=== PATIENT | female | born 1955 | race Caucasian/White ===

== ENCOUNTER → 2017-07-02 | Outpatient (CLI) | payer OTHER | LOC: FIMAGING 10:12 | PROVIDERS: ATTEND Internal Medicine | DX: K76.89 Other specified diseases of liver (principal) ==

== ENCOUNTER → 2017-07-07 | Outpatient (CLI) | payer OTHER | LOC: FIMAGING 09:43 | PROVIDERS: ATTEND Obstetrics & Gynecology | DX: Z12.31 Encounter for screening mammogram for malignant neoplasm of breast (principal) | CPT/HCPCS: G0202 ==

== ENCOUNTER → 2018-07-08 | Outpatient (CLI) | payer OTHER | LOC: FIMAGING 14:46 | PROVIDERS: ATTEND Obstetrics & Gynecology | DX: Z12.31 Encounter for screening mammogram for malignant neoplasm of breast (principal) ==

== ENCOUNTER 2018-08-21 21:19 | Observation (INO) | payer OTHER ==
--- NOTE | 2018-08-21 21:39 | EDPHY ---
H & P Stated Complaint: high HR Time Seen by Provider: 08/21/18 21:39 HPI/ROS: HPI CHIEF COMPLAINT: Palpitations HISTORY OF PRESENT ILLNESS: Very pleasant 63-year-old female, presents emergency room by private vehicle for palpitations. She states over the last few months she has had intermittent palpitations and not feeling well. She seen her primary care doctor for this however thought maybe it was her thyroid however her thyroid has been evaluated and has been told it is normal. She denies any chest pain or pleuritic pain. But does feel lightheaded, palpitations and flushed. States this happened predominantly tonight while in the movie theater. Continues to feel palpitations. Decided come the emergency room for evaluation. Patient states she is due to follow up with Cardiology for this. Past Medical History: Denies significant medical history except for thyroid disease Past Surgical History: Denies any recent surgery Social History: Denies drugs alcohol tobacco. Family History: Noncontributory. ROS REVIEW OF SYSTEMS: 10 Systems were reviewed and negative with the exception of the elements mentioned in the history of present illness. Exam Constitutional nontoxic triage nursing summary reviewed, vital signs reviewed, awake/alert. Nontoxic, vital signs stable but is noted be slightly tachycardic and hypertensive Eyes normal conjunctivae and sclera, EOMI, PERRLA. HENT normal inspection, atraumatic, moist mucus membranes, no epistaxis, neck supple/ no meningismus, no raccoon eyes. Respiratory clear to auscultation bilaterally, normal breath sounds, no respiratory distress, no wheezing. Cardiovascular tachycardia, regular rhythm, no murmur, no edema, distal pulses normal. Gastrointestinal soft, non-tender, no rebound, no guarding, normal bowel sounds, no distension, no pulsatile mass. Genitourinary no CVA tenderness. Musculoskeletal no midline vertebral tenderness, full range of motion, no calf swelling, no tenderness of extremities, no meningismus, good pulses, neurovascularly intact. Skin pink, warm, & dry, no rash, skin atraumatic. Neurologic awake, alert and oriented x 3, AAOx3, moves all 4 extremities equally, motor intact, sensory intact, CN II-XII intact, normal cerebellar, normal vision, normal speech. Psychiatric normal mood/affect. Heme/Lymph/Immune no lymphadenopathy. Differential diagnosis includes but is not limited to: ACS, atypical chest pain , pneumothorax, pneumonia, pulmonary embolism, aortic dissection, congestive heart failure, tumor, musculoskeletal pain, esophageal pain, GERD, peptic ulcer disease, pancreatitis Medical Decision Making: Plan for this patient IV establishment IV fluid bolus , EKG, blood work, chest x-ray, electrolytes, TSH, Mag, re-evaluate. Re-evaluation: EKG interpretation by me on record in [facility] system. Impression time of EKG 2135, sinus tach 105, right bundle-branch block present. Abnormal ST depression in V4 V5 V6. 2317: Spoke with the hospitalist agrees to admit. Plan for admission for palpitations, irregular heart rate, anxiety, and feeling unwell. Here in emergency room D-dimer negative Troponin negative Chest x-ray unremarkable EKG shows no signs of acute ischemia Right bundle-branch block seen on EKG with some mild ST depression V4 V5 V6. No old EKG to compare to. Patient does not have chest pain. Plan for admission overnight observation. Dr. Patel accepts. Source: Patient - Personal History Current Tetanus/Diphtheria Vaccine: Unsure Current Tetanus Diphtheria and Acellular Pertussis (TDAP): Unsure - Medical/Surgical History Hx Asthma: No Hx Chronic Respiratory Disease: No Hx Diabetes: No Hx Cardiac Disease: Yes Hx Renal Disease: No Hx Cirrhosis: No Hx Alcoholism: No Hx HIV/AIDS: No Hx Splenectomy or Spleen Trauma: No Other PMH: hypothyroid anxiety - Social History Smoking Status: Never smoked Constitutional: Initial Vital Signs Temperature (C) 36.4 C 08/21/18 21:20 Heart Rate 104 H 08/21/18 21:20 Respiratory Rate 16 08/21/18 21:20 Blood Pressure 178/90 H 08/21/18 21:20 O2 Sat (%) 100 08/21/18 21:20 O2 Delivery Mode Room Air Allergies/Adverse Reactions: phenytoin sodium [From Dilantin] Allergy (Mild, Verified 04/21/12 11:23) Rash phenytoin sodium extended [From Dilantin] Allergy (Mild, Verified 04/21/12 11:23 ) Rash morphine [Morphine] Allergy (Unknown, Verified 04/21/12 11:23) Rash Home Medications: Medication Instructions Recorded AMBIEN 09/10/09 SYNTHROID 09/10/09 HYDROmorphone HCL [Dilaudid 2 mg 2 mg PO Q4-6PRN PRN #10 tab 04/21/12 (RX)] Meclizine HCl [Meclizine HCl 25 mg 25 mg PO Q8 PRN #0 tab 04/21/12 (RX,OTC)] Ondansetron Odt [Zofran Odt] 4 mg PO Q4PRN #8 tab 04/21/12 oxyCODONE/APAP 5/325 [Percocet 1 - 2 tab PO Q4-6PRN PRN #15 tab 04/21/12 5/325] Medical Decision Making - Diagnostics Imaging Results: Imaging Impressions Chest X-Ray 08/21/18 21:51 Impression: 1. No acute pulmonary disease. 2. Consider chest two views when the patient's medical condition permits. - Data Points Laboratory Results: Laboratory Results 08/21/18 22:00 08/21/18 22:00 08/21/18 08/21/18 08/21/18 22:08 22:00 22:00 WBC RBC Hgb Hct MCV MCH MCHC RDW Plt Count MPV Neut % (Auto) Lymph % (Auto) Ashe % (Auto) Eos % (Auto) Baso % (Auto) Nucleat RBC Rel Count Absolute Neuts (auto) Absolute Lymphs (auto) Absolute Monos (auto) Absolute Eos (auto) Absolute Basos (auto) Absolute Nucleated RBC Immature Gran % Immature Gran # PT INR APTT D-Dimer Sodium 139 mEq/L mEq/L (135-145) Potassium 3.9 mEq/L mEq/L (3.3-5.0) Chloride 104 mEq/L mEq/L (97-110) Carbon Dioxide 23 mEq/l mEq/l (22-31) Anion Gap 12 mEq/L mEq/L (8-16) BUN 23 mg/dL mg/dL (7-23) Creatinine 1.0 mg/dL mg/dL (0.6-1.0) Estimated GFR 56 Glucose 114 mg/dL H mg/dL (70-100) Calcium 10.5 mg/dL H mg/dL (8.5-10.4) Magnesium 2.0 mg/dL mg/dL (1.6-2.3) Total Bilirubin 0.4 mg/dL mg/dL (0.1-1.4) Conjugated Bilirubin 0.1 mg/dL mg/dL (0.0-0.5) Unconjugated Bilirubin 0.3 mg/dL mg/dL (0.0-1.1) AST 31 IU/L IU/L (14-46) ALT 45 IU/L IU/L (9-52) Alkaline Phosphatase 107 IU/L IU/L (38-126) POC Troponin I 0.00 ng/mL ng/mL (0.00-0.08) NT-Pro-B Natriuret Pep 34 pg/mL pg/mL (0-125) Total Protein 8.3 g/dL H g/dL (6.3-8.2) Albumin 5.0 g/dL g/dL (3.5-5.0) TSH 6.180 uIU/mL H uIU/mL (0.465-4.680) Free T4 Pending Free T3 Pending 08/21/18 08/21/18 22:00 22:00 WBC 9.62 10^3/uL H 10^3/uL (3.80-9.50) RBC 4.93 10^6/uL 10^6/uL (4.18-5.33) Hgb 15.4 g/dL g/dL (12.6-16.3) Hct 45.8 % % (38.0-47.0) MCV 92.9 fL fL (81.5-99.8) MCH 31.2 pg pg (27.9-34.1) MCHC 33.6 g/dL g/dL (32.4-36.7) RDW 12.5 % % (11.5-15.2) Plt Count 279 10^3/uL 10^3/uL (150-400) MPV 9.5 fL fL (8.7-11.7) Neut % (Auto) 56.4 % % (39.3-74.2) Lymph % (Auto) 35.1 % % (15.0-45.0) Ashe % (Auto) 5.7 % % (4.5-13.0) Eos % (Auto) 1.9 % % (0.6-7.6) Baso % (Auto) 0.6 % % (0.3-1.7) Nucleat RBC Rel Count 0.0 % % (0.0-0.2) Absolute Neuts (auto) 5.42 10^3/uL 10^3/uL (1.70-6.50) Absolute Lymphs (auto) 3.38 10^3/uL H 10^3/uL (1.00-3.00) Absolute Monos (auto) 0.55 10^3/uL 10^3/uL (0.30-0.80) Absolute Eos (auto) 0.18 10^3/uL 10^3/uL (0.03-0.40) Absolute Basos (auto) 0.06 10^3/uL 10^3/uL (0.02-0.10) Absolute Nucleated RBC 0.00 10^3/uL 10^3/uL (0-0.01) Immature Gran % 0.3 % % (0.0-1.1) Immature Gran # 0.03 10^3/uL 10^3/uL (0.00-0.10) PT 12.4 SEC SEC (12.0-15.0) INR 0.90 (0.83-1.16) APTT 25.8 SEC SEC (23.0-38.0) D-Dimer < 0.27 ug/mLFEU ug/mLFEU (0.00-0.50) Sodium Potassium Chloride Carbon Dioxide Anion Gap BUN Creatinine Estimated GFR Glucose Calcium Magnesium Total Bilirubin Conjugated Bilirubin Unconjugated Bilirubin AST ALT Alkaline Phosphatase POC Troponin I NT-Pro-B Natriuret Pep Total Protein Albumin TSH Free T4 Free T3 Medications Given: Discontinued Medications Sodium Chloride (Ns) 1,000 mls @ 0 mls/hr IV EDNOW ONE; Wide Open PRN Reason: Protocol Stop: 08/21/18 21:52 Last Admin: 08/21/18 22:06 Dose: 1,000 mls Point of Care Test Results: Chemistry 08/21/18 22:08 POC Troponin I 0.00 ng/mL ng/mL (0.00-0.08) Departure - Departure Disposition: [facility] Acute Clinical Impression: Palpitations Condition: Fair
[2018-08-21] MEDS ORDERED: NS 1,000 ML IV ONE (21:51)
[2018-08-21 22:14] LABS: PLATELET COUNT 279 10^3/uL (150-400)
[2018-08-21 22:28] LABS: PROTIME(PATIENT) 12.4 SEC (12.0-15.0)
[2018-08-21] MEDS ORDERED: LORazepam 2 MG/ML INJ IVP ONE (23:11)
[2018-08-21] MEDS ORDERED: NS 1,000 ML IV SCH (23:45)
[2018-08-21] MEDS ORDERED: ONDANSETRON DISINTEGRATING 4 MG TAB PO PRN (23:47)
[2018-08-21] MEDS ORDERED: LORazepam 0.5 MG TAB PO PRN (23:47)
[2018-08-21] MEDS ORDERED: ONDANSETRON 4 MG/2 ML VIAL IVP PRN (23:47)
[2018-08-21] MEDS ORDERED: ACETAMINOPHEN 325 MG TAB PO PRN (23:47)
[2018-08-21] MEDS ORDERED: diphenhydrAMINE 25 MG CAP PO PRN (23:47)
[2018-08-22] MEDS ORDERED: LORazepam 0.5 MG TAB PO ONE (03:36)
[2018-08-22] MEDS ORDERED: LEVOTHYROXINE 50 MCG TAB PO SCH ×2 (03:45→04:30)
--- NOTE | 2018-08-22 05:53 | GHP ---
DATE OF ADMISSION: 08/21/2018 SOURCE: Patient provides history, appears reliable. EMR was reviewed and case discussed with ED pro vider. CHIEF COMPLAINT: Palpitations, presyncope, and tachycardia. HISTORY OF PRESENT ILLNESS: This is a pleasant 63-year-old female with past medical history signific ant for hypothyroidism, migraine headaches, anxiety, insomnia, and history of ongoing episodes of int ermittent palpitations, anxiety, and presyncope. The patient reports that she has had intermittent s ymptoms over the last several years, but in this past year she has been working on further evaluation given the severity of her palpitations and presyncopal episodes. Patient states that she becomes in creasingly distressed during these episodes. Yesterday, patient was sitting at a movie theater with some friends when she had onset of symptoms. They stopped at a store, and patient checked in the [facility] her heart rate which she reports was in the 170s and irregular. Patient came to the emergency department for further evaluation. When she arrived, patient's heart rate was in the low 110s to 100 s. Patient denies any chest pain, pressure, or associated shortness of breath except when the pulsat ions radiate into her neck. Patient reports that she is quite active. She had plans to follow up [facility] Dr. Remedios Martinez at the end of this month for further evaluation of her palpitations. Patient has b een gone for several months for a trip to [place] where she reports she was ambulating several mile s per day without any issues except for 2 episodes of palpitations where she had to sit down and rest . Patient reports that she occasionally gets headaches after these episodes. She also occasionally feels hot and chilled. She also reports a history of elevated blood pressures up to 140s, but never significantly elevated blood pressures as high as 200s, she denies. She has not had any orthopnea, l ower extremity edema, or PND. Patient does consume some decaffeinated teas occasionally during the d ay, but she does use a daily enema, a coffee enema, at the recommendation of her websphere commerce developer. REVIEW OF SYSTEMS: Ten systems reviewed and negative except as noted above. ALLERGIES: Phenytoin and morphine. HOME MEDICATIONS: Patient takes brand name Synthroid 50 mcg p.o. daily, Zofran ODT 4 mg p.o. q.4 ortiz rs p.r.n., meclizine 25 mg p.o. q.8 hours p.r.n., Dilaudid 2 mg p.o. q.4-6 hours p.r.n., lorazepam 0. 5 mg p.o. h.s. p.r.n. Pharmacy still to complete med rec review. PAST MEDICAL HISTORY: Significant for migraine headaches which patient was diagnosed initially with a single seizure episode in her 20s, but has been labeled as a complex migraine, hypothyroidism, anxi ety, insomnia. PAST SURGICAL HISTORY: Significant for left leg ORIF with plates and pins, partial colon resection, hernia repair, and breast reduction. FAMILY HISTORY: Mother with history of atrial fibrillation, . Patient concerned that she ma y have had an abdominal aortic aneurysm rupture. Maternal grandmother also with history of atrial fi brillation. SOCIAL HISTORY: Patient denies any tobacco use. She does report having used occasional sativa or ca nnabis. She also has a rare alcohol intake. CODE STATUS: Full. PHYSICAL EXAMINATION: VITAL SIGNS: Upon arrival to the emergency department, blood pressure 178/90, heart rate is 104, respiratory rate 16, O2 sat 100% on room air with temperature 36.4. Current rosie ls: Blood pressure 120/67, heart rate 76, respiratory rate 16, O2 saturation 96% on room air with te mperature of 36.8. GENERAL: No acute distress. Pleasant adult female is lying quietly in bed. HEA D: Normocephalic, atraumatic. EYES: Extraocular muscles are grossly intact. Pupils equal, round, symmetric. No scleral icterus or conjunctival injection. ENT: Mucous membranes appear moist. No o ropharyngeal erythema or nasal discharge. Dentition intact. NECK: Supple, trachea midline. CV: R egular rate and rhythm. No murmurs, rubs, or gallops appreciated. Carotids without any murmurs or b ruits. RESPIRATORY: Lungs are clear to auscultation bilaterally. No wheezes, rales, or rhonchi. A BDOMEN: Positive bowel sounds. Soft, nontender to palpation. No rebound, guarding, or masses appre ciated. Palpable aorta but no pulsatile mass is appreciated. : No suprapubic tenderness to palpa tion. No Baer catheter in place. EXTREMITIES: No cyanosis, clubbing, edema. Patient with 2+ peda l pulses. MUSCULOSKELETAL: Strength grossly intact. Patient able to sit up independently. Moves a ll extremities. Strength 5/5 upper and lower extremities. NEURO: Cranial nerves 2-12 are intact, s ymmetric bilaterally. Patient is awake, alert, and oriented x4. PSYCH: Thought process content and questions are appropriate. Patient does appear a little bit anxious, but she is pleasant and hoda ative. LABORATORY STUDIES: WBC is 9.62, H and H are 15.4, 45.8. MCV of 92.9, platelet count is 279. No ba nds. PT is 12.4, INR is 0.9, PTT is 25.8. D-dimer is less than 0.27. Sodium is 139, potassium is 3 .9, chloride 104, CO2 is 23, anion gap 12, BUN 23, creatinine is 1.0. GFR is 56, glucose 114, calciu m is 10.5, magnesium 2.0, total bilirubin 0.4, conjugated bilirubin 0.1, ALT is 45, AST is 31, alk ph os 107. Initial troponin is negative. BTNP is 34. Total protein 8.3, albumin is 5.0. TSH is 6.180 with followup free T4 1.18 and free T3 is 3.53. EKG reviewed myself showing sinus tachycardia in the 100s. PVCs are present. Right bundle branch bl ock, which patient reports was previously present. QTc is 453. No available comparison EKGs for rev iew. Chest x-ray image report reviewed myself is negative for any acute findings. ASSESSMENT AND PLAN: A pleasant 63-year-old female who presents with complaints of palpitations and presyncope. 1. Palpitations. Patient showing sinus tachycardia with occasional premature ventricular contractio ns. She has not had any evidence of arrhythmias on monitoring at this point, but we will monitor leticia sely overnight. Blood pressures have been acceptable with exception of the initial blood pressure wh ich has come down nicely. Differential diagnosis including tachyarrhythmia, anxiety or panic disorde r, hypothyroid disease, caffeine intake, pheochromocytoma less likely. No evidence for pulmonary emb olism. D-dimer is negative. No evidence of pneumonia. Patient will be monitored overnight. Her he art rate has come down into the 70s since arrival. She received some intravenous fluid in the emerge ncy department, which we will reassess in the morning to see if she still needs to continue this. El ectrolytes appear adequately replaced at this time. Echocardiogram in the morning and will plan to r epeat troponins. Also, consider continue with monitoring with a Holter if possible before discharge. Otherwise, patient does have followup with Dr. Martinez in a few weeks. Patient's abdominal ultrasound from 2017 was reviewed. There is no evidence of any aortic dilation or evidence of aneurysm on prev ious imaging studies as patient was concerned given potential family history as well as complaining o f feeling pulsations in her abdomen. 2. Elevated blood pressures without history of hypertension. Blood pressures have come down nicely after initial arrival. We will continue to monitor. No need for any p.r.n. 3. Patient's TSH slightly elevated, but T3, T4 are within normal limits. Plan to continue patient's 50 mcg of Synthroid. I have also educated patient to minimize caffeine intake, if possible to elimi page it entirely. Regardless, if this is oral or by enema. 4. Leukocytosis, minimally elevated white count greater than 9000. Likely reactive in setting of yu de jesus's tachycardia. She received IV fluids. We will plan to repeat in the morning. 5. Hypothyroidism. Resume supplementation as noted above. 6. Anxiety, insomnia. Continue patient's Ativan p.r.n. 7. Fluid, electrolyte, nutrition. Intravenous fluids as noted above. Encourage oral intake and sup plementation. Currently patient is n.p.o. except for sips in medications. 8. Cor status is full. 9. Disposition: Patient admitted to observation status on PCU floor for close cardiac monitoring pe nding further evaluation studies as noted above. /[id number]/MODL
[2018-08-22 10:47] LABS: PLATELET COUNT 232 10^3/uL (150-400)
[2018-08-22] MEDS ORDERED: REGADENOSON 0.4 MG/5 ML SYR IVP ONE (11:57)
--- NOTE | 2018-08-22 12:15 | ECHO ---
[email or web address] [address] Main: [phone] Fax: Transthoracic Echocardiogram Name: ABDI PRINGLE MR#: [id number] Study Date: 08/22/2018 Study Time: 10:02 AM Date of : 1955 Age: 63 year(s) Height: 160 cm (63 in.) Weight: 63.5 kg (140 lb.) BSA: 1.66 m2 Gender: Female Examination: Echo Indication: Palpitations Image Quality: Adequate Contrast: Requested by: Twyla Patel BP: 114 mmHg/61 mmHg Heart Rate: Rhythm: Indication: Palpitations Procedure Staff Auto Design Checker: Sandra Mercado RDCS Reading Physician: Dann Armando MD Requesting Provider: Conclusions: Normal size left ventricle. Normal global systolic LV function. EF is 57 %. No regional wall motion abnormality. Normal diastolic LV function. Mild mitral valve regurgitation is present. Trivial tricuspid valve regurgitation. Pulmonary artery pressure is not obtained due to inadequate TR jet. Measurements: Chambers Valvular Assessment AV/MV Valvular Assessment TV/PV Normal Normal Normal Name Value Range Name Value Range Name Value Range Ao Merced (2D): 2.7 cm (1.4 cm-2.6 AV Vmax: 1.04 m/s (1 m/s-1.7 PV Vmax: 0.88 m/s (0.6 m/s-0.9 cm) m/s) m/s) IVSd (2D): 0.8 cm (0.6 cm-1.1 AV maxP mmHg ( - ) PV PGmax: 3 mmHg ( - ) cm) AV meanP mmHg ( - ) LVDd (2D): 4.0 cm (3.9 cm-5.3 TOÑO (VTI): 2.1 cm ( - ) cm) MV E Vmax: 0.74 m/s ( - ) LVDs (2D): 2.7 cm (2.1 cm-4 MV A Vmax: 0.72 m/s ( - ) cm) MV E/A: 1.03 ( - ) LVPWd (2D): 1.0 cm ( - ) MV PHT: 0.062 s ( - ) LVOTd 1.8 cm 1.8 cm mm MVA (PHT): 3.5 s ( - ) LVEF (BP): 57 % (>=55 %) RVDd(2D): 3.5 cm (1.9 cm-3.8 cmmm) Continued Measurements: Chambers Valvular Assessment AV/MV Patient: ABDI PRINGLE Study Date: 08/22/2018 Page 1 of 2 10:02 AM Name Value Name Value LADs: 3.1 cm MV DecTime: 232 m/s LADs Lon.2 cm MV E' Septal: 0.08 m/s LA Area: 15.1 cm2 MV E/E' Septal: 9.40 LA Volume: 37 ml MV E/E' Lateral: 6.40 LA Volume Index: 22.3 ml/m2 RA Area: 12.7 cm2 Additional Vessels Name Value Ao Ascendin.8 cm Inferior Vena Cava: 1.7 cm Findings: Left Ventricle: Normal size left ventricle. No LV hypertrophy. Normal global systolic LV function. EF is 57 %. No regional wall motion abnormality. Normal diastolic LV function. Right Ventricle: Normal size right ventricle. Normal RV function. Left Atrium: The left atrium is normal in size. Right Atrium: The right atrium is normal in size. Mitral Valve: The mitral valve is normal in appearance and function. Mild mitral valve regurgitation is present. No mitral stenosis is present. Aortic Valve: The aortic valve is tri-leaflet. There is no significant aortic valve regurgitation. No aortic valve stenosis is present. Tricuspid Valve: The tricuspid valve is normal in appearance and function. Trivial tricuspid valve regurgitation. Pulmonary artery pressure is not obtained due to inadequate TR jet. Pulmonic Valve: The pulmonic valve is normal in appearance and function. Mild pulmonic valve regurgitation is noted. Aorta: The aorta is normal. Normal size aortic root measuring 2.7 cm. Normal size ascending aorta measuring 2.8 cm. IVC: The IVC is normal sized. Pericardium: No pericardial effusion. No pleural effusion. (No Signature Object) Patient: ABDI PRINGLE Study Date: 08/22/2018 Page 2 of 2 10:02 AM [id number]
--- NOTE | 2018-08-22 13:23 | ASMTCMCOM ---
CM Note CM Note Notes: CM reviewed chart and met pt during rounds for d/c planning. Pt is a 63 y/o female who presented to the ED for palpitations. Over the last few months she has had intermittent palpitations and has not felt well. Pt has been living independently with her , Anil at [phone]. No CM needs have been identified. CM will follow for changes. D/C Plan: Anticipate independent. Date Signed: 08/22/2018 01:23 PM Electronically Signed By:Mary Lou Florian
--- NOTE | 2018-08-22 14:05 | CPR ---
DATE OF PROCEDURE: 08/22/2018 PROCEDURE: Nuclear treadmill stress test. ORDERING PHYSICIAN: Twyla Patel MD. REASON FOR TEST: 1. Chest fullness. 2. Palpitations. Resting EKG shows a sinus rhythm with right bundle branch block. Prior to start of test, she is asym ptomatic. Resting blood pressure is 120/80, resting heart rate 82. NUCLEAR TREADMILL STRESS TEST: Yaya protocol. She was exercised for a total of 7 minutes and 30 seconds. She reached a MET level of 8.6. Peak hea rt rate was 164, which was maximal heart rate for her age. Peak blood pressure was 174/60. There we re no EKG changes or arrhythmias noted with exertion. She remained asymptomatic. RECOVERY: She spontaneously recovered. Her EKG remained stable with no arrhythmias noted. Resting blood pressure 124/60, resting heart rate 100. At this time, she currently is stable for nuclear imaging. /[id number]/MODL
[2018-08-22 15:57] VITALS: BP 116/69
--- NOTE | 2018-08-22 22:23 | PDDCSUM ---
Discharge Summary Discharge Summary: Date of admission: 08/21/18 Date of discharge: 08/22/18 Discharge Diagnoses: 1. Acute palpitations 2. Acute anxiety 3. Acutely elevated blood pressure Procedures: Normal nuc stress test; normal Echo; normal abdominal US (no AAA) Chief complaint: Palpitations, anxiety Subjective: No recurrence of symptoms, feeling well Physical Exam: SBP 110-140, HR 70-90, sating well on room air, heart rhythm normal w/o MRG, lungs CTA bilat, anxious, no LE edema, no abdominal bruit Labs: Cr 1.0, WBC 9,600, Hgb 15.4, K 3.9, dimer neg, TSH 6.2 Hospital Course: The patient presented w/ symptomatic palpitations, reported tachycardia which is very symptomatic, causing anxiety and general feeling of being unwell. The symptoms did not gen, and she presented to [facility] w/ an SBP of 200s and sinus tach on EKG. She was ruled out for ACS w/ normal trop and no ischemic changes on EKG. She was ruled out for obstructive CAD w/ a normal nuc stress; ruled out PE w/ normal dimer; ruled out AAA w/ normal abd US. I suspect that her symptoms are either purely anxiety related or an undiagnosed tachyarrhythmia which provokes anxiety and subsequently elevated BPs. I educated her regarding carotid massage and valsalva (in case this is an SVT) as well as provided her w/ an Rx for ativan to symptomatically treat. She has a follow-up appointment scheduled with Dr. Martinez, and I would recommend arranging outpatient 30-day monitor or event monitor + 24-hr ambulatory BP monitoring if rhythm monitoring does not yield a diagnosis. It is possible that episodic HTN is driving her symptomatology, albeit this is less likely, and arrhythmia should be evaluated first. If all diagnostic studies negative, recommend further investigation into anxiety. Discharge medications: please see official DC med rec in chart; of note, ativan 0.5mg PRN #20 prescribed Discharge instructions: please follow-up with Dr. Martinez as scheduled.
== END 2018-08-22 17:46 | disposition home or self-care (01) ==
LOC: EEVIPCON 23:10 → F2W 08-22 00:27
PROVIDERS: ADMIT Family Medicine; ATTEND Internal Medicine
DX: R00.2 Palpitations (principal); R03.0 Elevated blood-pressure reading, without diagnosis of hypertension; R55 Syncope and collapse; E03.9 Hypothyroidism, unspecified; F41.9 Anxiety disorder, unspecified
CPT/HCPCS: 71045; 76775; 78451; 93017; 93306; 96361; 96374; 99285; A9500; G0378; 84481-90; 84484-PO; J2060; J2785

== ENCOUNTER 2018-10-15 23:15 | Observation (INO) | payer OTHER ==
--- NOTE | 2018-10-15 23:27 | EDPHY ---
H & P Stated Complaint: Thinks in aflutter, heart racing Time Seen by Provider: 10/15/18 23:26 HPI/ROS: HPI CHIEF COMPLAINT: Palpitation HISTORY OF PRESENT ILLNESS: 69-year-old female, history of thyroid disease, hypertension, however no coronary artery disease, presents emergency room with palpitations. IV previously saw this patient back in August she was admitted the hospital for anxiety, hypertension palpitations. She did since follow-up with Cardiology. Placed on metoprolol. She did have a nuclear stress test that was negative. She denies any chest pain or chest pressure or shortness of breath however tonight she states that she went for vigorous workout. Then ate heavy meal afterwards. Then was getting ready to go to bed and felt her heart racing. She arrives to the emergency room stating that she feels her heart racing. Denies chest pain or shortness of breath. States the racing heart is regular. Past Medical History: Anxiety, hypertension, palpitation, thyroid disease Past Surgical History: no recent surgery Social History: Denies drugs alcohol tobacco. Family History: Noncontributory ROS REVIEW OF SYSTEMS: 10 Systems were reviewed and negative with the exception of the elements mentioned in the history of present illness. Exam Constitutional triage nursing summary reviewed, vital signs reviewed, awake/ alert. Noted be hypertensive at triage. Eyes normal conjunctivae and sclera, EOMI, PERRLA. HENT normal inspection, atraumatic, moist mucus membranes, no epistaxis, neck supple/ no meningismus, no raccoon eyes. Respiratory clear to auscultation bilaterally, normal breath sounds, no respiratory distress, no wheezing. Cardiovascular rate normal, regular rhythm, no murmur, no edema, distal pulses normal. Gastrointestinal soft, non-tender, no rebound, no guarding, normal bowel sounds, no distension, no pulsatile mass. Genitourinary no CVA tenderness. Musculoskeletal no midline vertebral tenderness, full range of motion, no calf swelling, no tenderness of extremities, no meningismus, good pulses, neurovascularly intact. Skin pink, warm, & dry, no rash, skin atraumatic. Neurologic awake, alert and oriented x 3, AAOx3, moves all 4 extremities equally, motor intact, sensory intact, CN II-XII intact, normal cerebellar, normal vision, normal speech. Psychiatric normal mood/affect. Heme/Lymph/Immune no lymphadenopathy. Differential Diagnosis: Includes but is not limited to in a particular order acute anxiety, cardiac arrhythmia, AFib, a flutter, SVT, other cardiac arrhythmia WPW, PE, dehydration, electrolyte disturbance Medical Decision Making: Plan for this patient IV establishment IV fluid bolus , EKG, chest x-ray, troponin, IV Ativan for anxiety rule out cardiac arrhythmia rule out ACS Re-evaluation: EKG interpretation by me on record in [employer] system. Impression time of EKG 2326, sinus rhythm rate of 83 with a right bundle-branch block present. When I compare this to her old EKG dated 08/21/2018 the morphology of the right bundle-branch block is unchanged. There is no acute ischemia on this EKG. EKG interpretation by me on record in [employer] system. Impression time of EKG 0005 this is a repeat EKG sinus rhythm rate of 80, right bundle-branch block present. Some irregularity to it. No acute ischemia. Patient's chest x-ray unremarkable. 0112: Patient has runs of tachycardia here in emergency room. Capture on telemetry monitoring. To be in the 150s appears to be possibly on lying a flutter. Patient did ambulate to bathroom got tachycardic, lightheaded and dizzy. Plan for hospital admission overnight. Cardiac monitoring. 1:17 a.m.. Patient at times goes into the 150s. When reviewing with the appears to be possibly underlying a flutter. Patient ambulated throughout the emergency room still feels lightheaded. Would prefer to be admitted overnight. Plan for observation overnight IV fluids. Patient consult to Dr. Angulo, Agrees to admit. 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, - Social History Smoking Status: Never smoked Constitutional: Initial Vital Signs Temperature (C) 36.5 C 11/29/18 23:19 Heart Rate 100 10/15/18 23:19 Respiratory Rate 19 10/15/18 23:19 Blood Pressure 181/100 H 10/15/18 23:19 O2 Sat (%) 99 10/15/18 23:19 O2 Delivery Mode Room Air Allergies/Adverse Reactions: phenytoin sodium [From Dilantin] Allergy (Mild, Verified 10/15/18 23:18) Rash phenytoin sodium extended [From Dilantin] Allergy (Mild, Verified 10/15/18 23:18 ) Rash morphine [Morphine] Allergy (Unknown, Verified 10/15/18 23:18) Rash Home Medications: Medication Instructions Recorded Levothyroxine [Synthroid 50 mcg 50 mcg PO DAILY06 09/10/09 (*)] LORazepam [Ativan (*)] 0.25 mg PO Q4 PRN #20 tab 08/22/18 Rizatriptan Benzoate [Rizatriptan] 5 mg PO DAILY PRN 08/22/18 Metoprolol ER-Hctz 100-12.5 mg 10/15/18 Medical Decision Making - Diagnostics Imaging Results: Imaging Impressions Chest X-Ray 10/15/18 23:31 Impression: No acute findings in the chest. - Data Points Laboratory Results: Laboratory Results 10/15/18 23:27 10/15/18 23:27 10/15/18 10/15/18 10/15/18 23:35 23:27 23:27 WBC RBC Hgb Hct MCV MCH MCHC RDW Plt Count MPV Neut % (Auto) Lymph % (Auto) Whitman % (Auto) Eos % (Auto) Baso % (Auto) Nucleat RBC Rel Count Absolute Neuts (auto) Absolute Lymphs (auto) Absolute Monos (auto) Absolute Eos (auto) Absolute Basos (auto) Absolute Nucleated RBC Immature Gran % Immature Gran # RBC/WBC/PLT Morphology Platelet Estimate PT 13.1 SEC SEC (12.0-15.0) INR 0.97 (0.83-1.16) APTT 25.0 SEC SEC (23.0-38.0) Sodium 142 mEq/L mEq/L (135-145) Potassium 3.5 mEq/L mEq/L (3.3-5.0) Chloride 105 mEq/L mEq/L (97-110) Carbon Dioxide 24 mEq/l mEq/l (22-31) Anion Gap 13 mEq/L mEq/L (6-14) BUN 20 mg/dL mg/dL (7-23) Creatinine 0.9 mg/dL mg/dL (0.6-1.0) Estimated GFR > 60 Glucose 105 mg/dL H mg/dL (70-100) Calcium 10.3 mg/dL mg/dL (8.5-10.4) Magnesium 2.0 mg/dL mg/dL (1.6-2.3) Total Bilirubin 0.5 mg/dL mg/dL (0.1-1.4) Conjugated Bilirubin 0.2 mg/dL mg/dL (0.0-0.5) Unconjugated Bilirubin 0.3 mg/dL mg/dL (0.0-1.1) AST 38 IU/L IU/L (14-46) ALT 46 IU/L IU/L (9-52) Alkaline Phosphatase 80 IU/L IU/L (38-126) POC Troponin I 0.00 ng/mL ng/mL (0.00-0.08) NT-Pro-B Natriuret Pep 75 pg/mL pg/mL (0-125) Total Protein 8.1 g/dL g/dL (6.3-8.2) Albumin 5.1 g/dL H g/dL (3.5-5.0) 10/15/18 23:27 WBC 10.62 10^3/uL H 10^3/uL (3.80-9.50) RBC 4.81 10^6/uL 10^6/uL (4.18-5.33) Hgb 15.1 g/dL g/dL (12.6-16.3) Hct 45.2 % % (38.0-47.0) MCV 94.0 fL fL (81.5-99.8) MCH 31.4 pg pg (27.9-34.1) MCHC 33.4 g/dL g/dL (32.4-36.7) RDW 12.4 % % (11.5-15.2) Plt Count 284 10^3/uL 10^3/uL (150-400) MPV 9.3 fL fL (8.7-11.7) Neut % (Auto) 38.2 % L % (39.3-74.2) Lymph % (Auto) 51.6 % H % (15.0-45.0) Whitman % (Auto) 7.2 % % (4.5-13.0) Eos % (Auto) 2.1 % % (0.6-7.6) Baso % (Auto) 0.7 % % (0.3-1.7) Nucleat RBC Rel Count 0.0 % % (0.0-0.2) Absolute Neuts (auto) 4.06 10^3/uL 10^3/uL (1.70-6.50) Absolute Lymphs (auto) 5.48 10^3/uL H 10^3/uL (1.00-3.00) Absolute Monos (auto) 0.76 10^3/uL 10^3/uL (0.30-0.80) Absolute Eos (auto) 0.22 10^3/uL 10^3/uL (0.03-0.40) Absolute Basos (auto) 0.07 10^3/uL 10^3/uL (0.02-0.10) Absolute Nucleated RBC 0.00 10^3/uL 10^3/uL (0-0.01) Immature Gran % 0.2 % % (0.0-1.1) Immature Gran # 0.02 10^3/uL 10^3/uL (0.00-0.10) RBC/WBC/PLT Morphology TNP Platelet Estimate TNP PT INR APTT Sodium Potassium Chloride Carbon Dioxide Anion Gap BUN Creatinine Estimated GFR Glucose Calcium Magnesium Total Bilirubin Conjugated Bilirubin Unconjugated Bilirubin AST ALT Alkaline Phosphatase POC Troponin I NT-Pro-B Natriuret Pep Total Protein Albumin Medications Given: Discontinued Medications Sodium Chloride (Ns) 1,000 mls @ 0 mls/hr IV EDNOW ONE; Wide Open PRN Reason: Protocol Stop: 10/15/18 23:32 Last Admin: 10/15/18 23:45 Dose: 1,000 mls Lorazepam (Ativan Injection) 0.5 mg IVP EDNOW ONE Stop: 10/15/18 23:34 Last Admin: 10/15/18 23:48 Dose: 0.5 mg Point of Care Test Results: Chemistry 10/15/18 23:35 POC Troponin I 0.00 ng/mL ng/mL (0.00-0.08) Departure - Departure Disposition: [facility] Inpatient Acute Clinical Impression: Palpitations, Tachycardia Condition: Fair Referrals: Serene Sandoval MD [Primary Care Provider] - As per Instructions
[2018-10-15] MEDS ORDERED: NS 1,000 ML IV ONE (23:31)
[2018-10-15] MEDS ORDERED: LORazepam 2 MG/ML INJ IVP ONE (23:33)
[2018-10-15 23:40] LABS: PLATELET COUNT 284 10^3/uL (150-400)
[2018-10-15 23:47] LABS: INR 0.97 (0.83-1.16); PROTIME(PATIENT) 13.1 SEC (12.0-15.0)
[2018-10-16] MEDS ORDERED: ONDANSETRON DISINTEGRATING 4 MG TAB PO PRN (01:20)
[2018-10-16] MEDS ORDERED: ACETAMINOPHEN 325 MG TAB PO PRN (01:20)
[2018-10-16] MEDS ORDERED: ONDANSETRON 4 MG/2 ML VIAL IVP PRN (01:20)
--- NOTE | 2018-10-16 01:40 | PDGENHP ---
History and Physical - Chief Complaint Palpitations - History of Present Illness 63 yo F w/ hx of SVT and hypothyroid presents with palpitations. She was admitted for similar symptoms in August. Ischemic evaluation at that time was negative. She had an event monitor placed, which reveal narrow complex tachycardia with rates of up to 240. Per Dr. Dill, the rhythm seemed consistent with atrial tachycardia and occasional atrial flutter. Her symptoms improved significantly with avoidance of ETOH/MJ and starting metoprolol. She is currently taking 37.5 mg BID, which she is compliant with. Today she was in her usual state of health. She went to a work-out class and then out to dinner. She denies ETOH. This evening she noted heart racing so she came to the ED. She is continuing to feel this intermittently. Her ECG is unchanged from prior. Case discussed with ED physician Dr. Nicolas; records reviewed and summarized above. History Information - Allergies/Home Medication List Allergies/Adverse Reactions: phenytoin sodium [From Dilantin] Allergy (Mild, Verified 10/15/18 23:18) Rash phenytoin sodium extended [From Dilantin] Allergy (Mild, Verified 10/15/18 23:18 ) Rash morphine [Morphine] Allergy (Unknown, Verified 10/15/18 23:18) Rash Home Medications: Levothyroxine [Synthroid 50 mcg (*)] 50 mcg PO DAILY06 09/10/09 [Last Taken Unknown] Rizatriptan Benzoate [Rizatriptan] 5 mg PO DAILY PRN 08/22/18 [Last Taken Unknown] Metoprolol ER-Hctz 100-12.5 mg 10/15/18 [Last Taken Unknown] I have personally reviewed and updated: family history, medical history - Past Medical History SVT Additional medical history: Hypothyroid - Surgical History Reports: colectomy, hernia repair Additional surgical history: LLE ORIF - Family History Additional family history: Atrial fibrillation - Social History Smoking Status: Never smoked Review of Systems Review of Systems: ROS: 10pt was reviewed & negative except for what was stated in HPI & below Physical Exam Physical Exam: Temp Pulse Resp BP Pulse Ox 36.5 C 90 20 117/73 96 10/15/18 23:19 10/16/18 01:02 10/16/18 01:02 10/16/18 01:02 10/16/18 01:02 Constitutional: appears nourished, uncomfortable Eyes: PERRL, EOMI Ears, Nose, Mouth, Throat: moist mucous membranes, no oral mucosal ulcers Cardiovascular: no murmur, rub, or gallop, irregularly irregular Respiratory: no respiratory distress, clear to auscultation Gastrointestinal: normoactive bowel sounds, soft, non-tender abdomen Skin: warm, normal color Musculoskeletal: full muscle strength, no muscle tenderness Neurologic: AAOx3, CN II-XII Intact Psychiatric: interacting appropriately, not anxious Lab Data & Imaging Review 10/15/18 23:10/15/18: WBC 10.62 10^3/uL (3.80-9.50) H 10/15/18: RBC 4.81 10^6/uL (4.18-5.33) 10/15/18 23: Hgb 15.1 g/dL (12.6-16.3) 10/15/18: Hct 45.2 % (38.0-47.0) 10/15/18: MCV 94.0 fL (81.5-99.8) 10/15/18: MCH 31.4 pg (27.9-34.1) 10/15/18: MCHC 33.4 g/dL (32.4-36.7) 10/15/18: RDW 12.4 % (11.5-15.2) 10/15/18 23: Plt Count 284 10^3/uL (150-400) 10/15/18: MPV 9.3 fL (8.7-11.7) 10/15/18: Neut % (Auto) 38.2 % (39.3-74.2) L 10/15/18: Lymph % (Auto) 51.6 % (15.0-45.0) H 10/15/18: [place] % (Auto) 7.2 % (4.5-13.0) 10/15/18: Eos % (Auto) 2.1 % (0.6-7.6) 10/15/18: Baso % (Auto) 0.7 % (0.3-1.7) 10/15/18 23: Nucleat RBC Rel Count 0.0 % (0.0-0.2) 10/15/18: Absolute Neuts (auto) 4.06 10^3/uL (1.70-6.50) 10/15/18 23: Absolute Lymphs (auto) 5.48 10^3/uL (1.00-3.00) H 10/15/18: Absolute Monos (auto) 0.76 10^3/uL (0.30-0.80) 10/15/18 23: Absolute Eos (auto) 0.22 10^3/uL (0.03-0.40) 10/15/18: Absolute Basos (auto) 0.07 10^3/uL (0.02-0.10) 10/15/18: Absolute Nucleated RBC 0.00 10^3/uL (0-0.01) 10/15/18: Immature Gran % 0.2 % (0.0-1.1) 10/15/18: Immature Gran # 0.02 10^3/uL (0.00-0.10) 10/15/18: RBC/WBC/PLT Morphology TNP 10/15/18: Platelet Estimate TNP 10/15/18: PT 13.1 SEC (12.0-15.0) 10/15/18: INR 0.97 (0.83-1.16) 10/15/18: APTT 25.0 SEC (23.0-38.0) 10/15/18 23: Sodium 142 mEq/L (135-145) 10/15/18: Potassium 3.5 mEq/L (3.3-5.0) 10/15/18: Chloride 105 mEq/L (97-110) 10/15/18: Carbon Dioxide 24 mEq/l (22-31) 10/15/18: Anion Gap 13 mEq/L (6-14) 10/15/18: BUN 20 mg/dL (7-23) 10/15/18: Creatinine 0.9 mg/dL (0.6-1.0) 10/15/18 23: Estimated GFR > 60 11/29/18 23:27 Glucose 105 mg/dL (70-100) H 10/15/18 23:27 Calcium 10.3 mg/dL (8.5-10.4) 10/15/18 23: Magnesium 2.0 mg/dL (1.6-2.3) 10/15/18 23:27 Total Bilirubin 0.5 mg/dL (0.1-1.4) 10/15/18 23: Conjugated Bilirubin 0.2 mg/dL (0.0-0.5) 10/15/18 23: Unconjugated Bilirubin 0.3 mg/dL (0.0-1.1) 10/15/18 23: AST 38 IU/L (14-46) 10/15/18 23: ALT 46 IU/L (9-52) 10/15/18 23: Alkaline Phosphatase 80 IU/L (38-126) 10/15/18 23: POC Troponin I 0.00 ng/mL (0.00-0.08) 10/15/18 23:35 NT-Pro-B Natriuret Pep 75 pg/mL (0-125) 10/15/18 23: Total Protein 8.1 g/dL (6.3-8.2) 10/15/18 23:27 Albumin 5.1 g/dL (3.5-5.0) H 10/15/18 23:27 Imaging Review: Imaging Impressions Chest X-Ray 10/15/18 23:31 Impression: No acute findings in the chest. Visualized and Interpreted EKG results: Yes EKG Interpretation: Positive for: other (Sinus rhythm w/ PACs), right bundle branch block Assessment & Plan Assessment: 63 yo F w/ hx of SVT presents with palpitations. Plan: 1. SVT, recurrent - Recently admitted for the same; event monitor revealed atrial tachycardia/flutter with rates up to 240s. Symptoms had significantly improved with avoidance of ETOH and MJ as well as starting metoprolol, now on 37.5 mg BID. Ischemic evaluation negative last month. - Admit to PCU for observation - Monitor on telemetry - Continue home metoprolol pending reconciliation - Cardiology consult placed in [facility] - Will check TSH 2. Hypothyroid - Continue LTX, check TSH Diet - Regular Code - Full Ppx - LMWH Dispo - Admit under observation status
[2018-10-16 04:09] LABS: PLATELET COUNT 266 10^3/uL (150-400)
[2018-10-16] MEDS ORDERED: ENOXAPARIN 40 MG/0.4 ML SYR SC SCH (09:00)
[2018-10-16] MEDS ORDERED: RIZATRIPTAN BENZOATE 5 MG PO PRN (09:34)
[2018-10-16] MEDS ORDERED: CARBOXYMETHYLCELLULOSE 1% 0.4 ML DROPERETTE EACHEYE PRN (09:34)
[2018-10-16] MEDS ORDERED: LEVOTHYROXINE 50 MCG TAB PO SCH (10:00)
[2018-10-16] MEDS ORDERED: METOPROLOL SUCCINATE XR 50 MG TAB PO SCH (10:45)
[2018-10-16] MEDS ORDERED: ASPIRIN 325 MG TAB PO SCH (11:30)
[2018-10-16 11:36] VITALS: BP 123/69
--- NOTE | 2018-10-16 13:54 | PDDCSUM ---
Discharge Summary Discharge Summary: 63 yo F w/ hx of SVT and hypothyroid admitted with palpitations. She was admitted for similar symptoms in August. Ischemic evaluation at that time was negative. She had an event monitor placed, which reveal narrow complex tachycardia with rates of up to 240. Per Dr. Dill, the rhythm seemed consistent with atrial tachycardia and occasional atrial flutter. Her symptoms improved significantly with avoidance of ETOH/MJ and starting metoprolol. She is currently taking 37.5 mg BID, which she is compliant with. She was evaluated by Cardiology and Metoprolol was increased. She has been cleared for d/c. She will f/u with Cardiology in 1-2 weeks. Her TSH was noted to be high. She wants to d/w her Orthodontic Technician regarding ongoing Levothyroxine and has requested no changes DDX 1. SVT, recurrent - Recently admitted for the same; event monitor revealed atrial tachycardia/flutter with rates up to 240s. Symptoms had significantly improved with avoidance of ETOH and MJ as well as starting metoprolol, now on 37.5 mg BID. Ischemic evaluation negative last month. 2. Hypothyroid - Continue LTX, f/u Endocrinology Exam: NAD AAOX3 RRR CTA B S/NT/ND MEDS: SEE MED REC F/U: PER ABOVE TOTAL TIME SPENT ON D/C IS 35 MINS
--- NOTE | 2018-10-16 18:35 | GCON ---
CARDIOLOGY CONSULT DATE OF CONSULTATION: 10/16/2018 PRIMARY CARDIOLOGISTS: Myself and Dr. Osbaldo Dill. CHIEF COMPLAINT: Palpitations. HISTORY OF PRESENT ILLNESS: The patient is a 63-year-old female with hypertension, SVT, hypothyroidi sm, and dyslipidemia. She was first diagnosed with SVT (likely atrial tachycardia versus atrial flut ter) in August of this year when she presented with palpitations. She was admitted at that time. S he had a normal nuclear stress test and overall normal echocardiogram with only mild mitral regurgita tion. In the outpatient setting, we documented fast SVT up to 240 beats per minute. She was started on bet a blockers and made some lifestyle modifications, including alcohol cessation and cessation of caffei ne enemas. However, yesterday, she admits that she was somewhat dehydrated. She went to a very inte nse exercise class and then had a large meal, which is unusual for her. Around 10 p.m., she started to notice her usual palpitations. This is not as intense symptom as before, but she was concerned an d presented to the ER. She was found to have intermittent salvos of SVT, admitted for observation. She is currently in sinus rhythm. Feels well. No anginal chest pain. No presyncope or syncope. ALLERGIES: Phenytoin and morphine. PAST MEDICAL HISTORY: 1. SVT. 2. Hypertension. 3. Hypothyroidism. 4. Anxiety. 5. Dyslipidemia. 6. Right bundle branch block. OUTPATIENT MEDICATIONS: Metoprolol-XL 37.5 mg once daily, Synthroid 50 mcg daily, Ativan p.r.n., kaylie atriptan p.r.n., selenium, ibuprofen p.r.n., vitamin D3, and vaginal estrogen. SOCIAL HISTORY: The patient is . She does not smoke cigarettes or drink significant amounts of alcohol. FAMILY HISTORY: Not applicable to the current case. PHYSICAL EXAM: VITAL SIGNS: Blood pressure 118/70. It was 181/100 upon admission to the ER. Heart rate 71, oxygen saturation 95% on room air. She is afebrile. Respiratory rate is 12. GENERAL: We ll-appearing older female in no acute distress. CARDIOVASCULAR: JVP less than 10. Regular rate and rhythm without murmur or gallop. LUNGS: Clear to auscultation without wheeze, rhonchi, or rales. ABDOMEN: Soft, nontender. EXTREMITIES: Warm and well perfused without cyanosis, clubbing, or edema . LABORATORY/IMAGING: CBC is normal. INR is 0.97. Sodium 143, potassium 4.2, chloride 109, bicarb 27 , BUN 17, creatinine 0.8. TSH is 13.5. She had a normal free T4 and free T3 in August of this year . LDL cholesterol 159 in June of this year. EKG reviewed by me shows sinus rhythm with right bundle branch block. Second EKG shows sinus rhythm with short salvos of SVT. As mentioned, she has had an echocardiogram with normal LV systolic function and mild mitral regurgit ation. Normal nuclear stress test in August of this year. ASSESSMENT/PLAN: 63-year-old female with supraventricular tachycardia that is likely either atrial t achycardia or atrial flutter. Both of these arrhythmias are very short lived. At this point, her CH ADS2-VASc score is 1, but given the very short term atrial arrhythmias, I do not think that she requi res Eliquis therapy. We will start aspirin and increase her beta sylvain. 1. Supraventricular tachycardia: Increase beta sylvain as above. If she cannot tolerate this or schreiber s breakthrough arrhythmias, either add diltiazem or switch diltiazem. She has seen Dr. Oza. Paul newton for ablation. The patient would like to try medical management first. She understands trigge rs to avoid, including alcohol, caffeine, and dehydration. 2. Hypertension: Currently well controlled. Continue beta-sylvain. 3. Dyslipidemia: Calcium score of zero last year. She does not wish to start a statin at this time . We will continue to discuss this at followup. 4. Possible sleep-disordered breathing as a trigger for arrhythmia: She has been referred for [facility] sleep medicine evaluation. 5. Anxiety: Outpatient management. 6. Hypothyroidism: TSH is elevated here. She will follow up with her benefits clerk. She is stable for discharge from cardiovascular standpoint. Follow up with me in 2 weeks. /[id number]/MODL
[2018-10-16] MEDS ORDERED: LORazepam 0.5 MG TAB PO SCH (21:00)
--- NOTE | 2018-10-17 06:16 | CPEKG ---
Test Reason : OPEN Blood Pressure : / mmHG Vent. Rate : 080 BPM Atrial Rate : 154 BPM P-R Int : 179 ms QRS Dur : 123 ms QT Int : 401 ms P-R-T Axes : 050 012 036 degrees QTc Int : 463 ms Unknown rhythm, irregular rate Right bundle branch block Confirmed by Elliot Gardner ([id number]) on 10/17/2018 6:16:10 AM Referred By: Confirmed By:Elliot Gardner
--- NOTE | 2018-10-17 06:16 | CPEKG ---
Test Reason : OPEN Blood Pressure : / mmHG Vent. Rate : 083 BPM Atrial Rate : 082 BPM P-R Int : 174 ms QRS Dur : 127 ms QT Int : 413 ms P-R-T Axes : 052 025 035 degrees QTc Int : 486 ms Sinus rhythm Right bundle branch block Confirmed by Elliot Gardner ([id number]) on 10/17/2018 6:16:09 AM Referred By: Confirmed By:Elliot Gardner
[2018-10-17] MEDS ORDERED: SELENIUM 0.2 MG TAB PO SCH (09:00)
[2018-10-17] MEDS ORDERED: CALCIUM CARBONATE 500 MG TAB PO SCH (09:00)
[2018-10-17] MEDS ORDERED: CHOLECALCIFEROL VIT D3 1,000 UNITS TAB PO SCH (09:00)
[2018-10-17] MEDS ORDERED: OMEGA-3 FATTY ACIDS 1,000 MG CAP PO SCH (09:00)
[2018-10-17] MEDS ORDERED: Herbals/Supplements -Info Only PO SCH (09:00)
[2018-10-17] MEDS ORDERED: MAGNESIUM OXIDE 400 MG TAB PO SCH (09:00)
[2018-10-19] MEDS ORDERED: ESTRADIOL 42.5 GM CRTUBE VG SCH (08:00)
== END 2018-10-16 14:34 | disposition home or self-care (01) ==
LOC: F2W 10-16 02:20
PROVIDERS: ADMIT Student in an Organized Health Care Education/Training Program; ATTEND Family Medicine
DX: R00.0 Tachycardia, unspecified (principal); E03.9 Hypothyroidism, unspecified
CPT/HCPCS: 71045; 93005; G0378; 84481-90; 84484-PO; 96374; J1650; J2060

== ENCOUNTER 2018-12-22 06:48 | Observation (INO) | payer OTHER ==
[2018-12-22] MEDS ORDERED: NS 1,000 ML IV ONE (06:50)
[2018-12-22 07:24] LABS: PLATELET COUNT 306 10^3/uL (150-400)
[2018-12-22 07:33] LABS: INR 1.03 (0.83-1.16); PROTIME(PATIENT) 13.7 SEC (12.0-15.0)
[2018-12-22] MEDS ORDERED: HEPARIN 10,000 UNIT/10 ML MDV (1,000 UNIT/ML) ONE (08:00)
[2018-12-22] MEDS ORDERED: LIDOCAINE 1% 300 MG/30 ML SDV ONE (08:00)
[2018-12-22] MEDS ORDERED: BUPIVACAINE 0.75% 10 ML SDV ONE (08:00)
[2018-12-22] MEDS ORDERED: ISOPROTERENOL HCL/D5W 0.2 MG/50 ML BAG IV ONE ×2 (08:00→10:13)
[2018-12-22] MEDS ORDERED: MIDAZOLAM 2 MG/2 ML VIAL IVP ONE (08:25)
--- NOTE | 2018-12-22 08:27 | PDANEPAE ---
ANE History of Present Illness svt ANE Past Medical History - Cardiovascular History Hx Hypertension: No Hx Arrhythmias: Yes Hx Chest Pain: No Hx Coronary Artery / Peripheral Vascular Disease: No Hx CHF / Valvular Disease: No Hx Palpitations: No - Pulmonary History Hx COPD: No Hx Asthma/Reactive Airway Disease: No Hx Recent Upper Respiratory Infection: No Hx Oxygen in Use at Home: No Hx Sleep Apnea: Yes - Neurologic History Hx Cerebrovascular Accident: No Hx Seizures: Yes Hx Dementia: No Neurologic History Comment: with migraine many years ago - Endocrine History Hx Diabetes: No Hypothyroid: No Hyperthyroid: No Obesity: no - Renal History Hx Renal Disorders: No - Liver History Hx Hepatic Disorders: No - Neurological & Psychiatric Hx Hx Neurological and Psychiatric Disorders: No - GI History GERD: mild - Chronic Pain History Chronic Pain: No ANE Review of Systems Review of Systems: - Exercise capacity Exercise capacity: >=4 METS ANE Patient History - Allergies Allergies/Adverse Reactions: phenytoin sodium [From Dilantin] Allergy (Mild, Verified 10/15/18 23:18) Rash phenytoin sodium extended [From Dilantin] Allergy (Mild, Verified 10/15/18 23:18 ) Rash morphine [Morphine] Allergy (Unknown, Verified 10/15/18 23:18) Rash - Home Medications Home Medications: Levothyroxine [Synthroid 50 mcg (*)] 50 mcg PO SUTUTHSA@06 09/10/09 [Last Taken 12/22/18 00:00] Rizatriptan Benzoate [Rizatriptan] 5 mg PO DAILY PRN 08/22/18 [Last Taken 08:00] Calcium Carbonate [Oyster Shell Calcium 500 mg (*)] 500 mg PO DAILY 10/16/18 [ Last Taken 12/21/18 08:00] Cholecalciferol Vit D3 [Vitamin D3 (*)] 1,000 units PO DAILY 10/16/18 [Last Taken 12/21/18 08:00] Estradiol [Estrace Vaginal (*)] 1 xi VG Q3D 10/16/18 [Last Taken 11/17/18 20:00 ] Herbals/Supplements -Info Only 1 ea PO DAILY 10/16/18 [Last Taken 12/21/18 08:00 ] LORazepam [Ativan (*)] 0.5 mg PO HS 10/16/18 [Last Taken 12/22/18 00:00] Magnesium Oxide [Magnesium Oxide 400 mg (*)] 400 mg PO DAILY 10/16/18 [Last Taken 12/21/18 20:00] [place]-3 Fatty Acids [Fish Oil 1000 mg (*)] 1,000 mg PO DAILY 10/16/18 [Last Taken 12/21/18 08:00] Levothyroxine [Synthroid 100 mcg (*)] 100 mcg PO MWF@06 12/15/18 [Last Taken 03/05 23:30] Psyllium Husk (with Sugar) [Metamucil Packet] 1 each PO BID 12/15/18 [Last Taken 12/20/18 20:00] - NPO status NPO Status: no food or drink >8 hours - Smoking Hx Smoking Status: Never smoked ANE Labs/Vital Signs - Labs Result Diagrams: 12/22/18 07:10 12/22/18 07:10 - Vital Signs Height: 163.4 cm Weight: 64 kg ANE Physical Exam - Airway Mallampati Score: Class 2 Mouth exam: normal dental/mouth exam - Pulmonary Pulmonary: no respiratory distress - Cardiovascular Cardiovascular: regular rate and rhythym - ASA Status ASA Status: II ANE Anesthesia Plan Anesthesia Plan: general endotracheal anesthesia
[2018-12-22] MEDS ORDERED: PROPOFOL 200 MG/20 ML VIAL ONE ×2 (08:32→08:39)
[2018-12-22] MEDS ORDERED: fentaNYL 100 MCG/2 ML INJ ONE (08:32)
[2018-12-22] MEDS ORDERED: SUCCINYLCHOLINE CHLORIDE 200 MG/10 ML SYR IVP ONE (08:32)
[2018-12-22] MEDS ORDERED: ROCURONIUM 100 MG/10 ML VIAL ONE (08:33)
[2018-12-22] MEDS ORDERED: DEXAMETHASONE 4 MG/ML VIAL ONE (08:33)
[2018-12-22] MEDS ORDERED: LIDOCAINE 2% 5 ML SDV ONE (08:33)
--- NOTE | 2018-12-22 08:38 | PDGENHP ---
History & Physical Chief Complaint: SVT (AT vs. AFl) History of Present Illness: Frequent episodes of symptomatic SVT with breakthrough episodes of Metoprolol 50mg. Relevant Physical Exam: General: A&Ox4, no apparent distress. Respiratory: CTA. Cardiac: Regular rate and rhythm, S1, S2. Extremities: WNL, pulses 2+ bilaterally, no edema Cardiorespiratory Assessment: Proceed with EPS and SVT ablation today as planned. If AFib is inducible, this will not be targeted during today's procedure.
[2018-12-22] MEDS ORDERED: DESFLURANE 240 ML BOTTLE IH ONE (08:46)
[2018-12-22] MEDS ORDERED: PROPOFOL/EMULSION 500 MG/50 ML BOTTLE IV ONE ×4 (09:03→11:14)
[2018-12-22] MEDS ORDERED: ROCURONIUM 50 MG/5 ML VIAL ONE (11:00)
[2018-12-22] MEDS ORDERED: D5W IV ONE (11:00)
[2018-12-22] MEDS ORDERED: CAFFEINE IV ONE (11:00)
[2018-12-22] MEDS ORDERED: SODIUM BENZOATE IV ONE (11:00)
[2018-12-22] MEDS ORDERED: SUGAMMADEX SODIUM 200 MG/2 ML VIAL IVP ONE (11:43)
--- NOTE | 2018-12-22 12:08 | POSTANESTH ---
Post Anesthetic Evaluation Cardiovascular Status: Normal, Stable Respiratory Status: Normal, Stable Level of Consciousness/Mental Status: Can Participate in Eval Pain Control: Adequate, Prn Tx Ordered Nausea/Vomiting Control: Adequate, Prn Tx Ordered Complications Possibly Related to Anesthesia: None Noted
[2018-12-22] MEDS ORDERED: fentaNYL 100 MCG/2 ML INJ IVP PRN (12:09)
[2018-12-22] MEDS ORDERED: NALOXONE HCL 0.4 MG/ML INJ IVP PRN (12:09)
[2018-12-22] MEDS ORDERED: ALBUTEROL 3 ML DEYVIAL IH PRN (12:09)
[2018-12-22] MEDS ORDERED: RIZATRIPTAN BENZOATE 5 MG PO PRN (12:29)
--- NOTE | 2018-12-22 13:06 | EPPROC ---
Electrophysiology Procedure Note: ELECTROPHYSIOLOGIC STUDY AND CATHETER MEDIATED ABLATION FOR SUBEUSTACHIAN ISTHMUS DEPENDENT COUNTERCLOCKWISE ATRIAL FLUTTER: INDICATION: Recurrent atrial flutter PROCEDURES PERFORMED: 11013-21 EP evaluation with RA/RV/LA pace/record, with arrhythmia induction 25497-30 EP evaluation with RA/RV pace record, insert/reposition catheter, with arrhythmia induction 40506 SVT ablation 78034 3D mapping Fluoroscopy Catheters & Anesthesia: The patient arrived in the Electrophysiology Laboratory in the fasting state. The right clavicular region, right groin, and left groin area were prepped and draped in the usual sterile manner. Anesthesiologist Dr. Aiyana Copeland administered general anesthesia. Appropriate non-invasive blood pressure, pulse oximetry and end-tidal CO2 monitoring was established. All catheters were placed percutaneously using the modified Seldinger technique , and advanced into position under fluoroscopic guidance. One #7 Sinhala deflectable octapolar electrode catheter was advanced to the His-bundle position via the left femoral vein . One #7 Sinhala deflectable catheter with 10 pairs of electrodes was placed via the left femoral vein into the coronary sinus. One # 7 Sinhala Halo catheter was inserted through the right femoral vein and was placed at the tricuspid annulus. Heparin was administered to keep ACT > 200 seconds. Programmed stimulation was performed from the right atrium, coronary sinus ( left atrium) and right ventricle. Parahisian pacing demonstrated all retrograde conduction over the AV node. On arrival to the Electrophysiology Laboratory the patient was in sinus rhythm. Both clockwise and counter-clockwise cavotricuspid isthmus dependent atrial flutter were easily induced, cycle length 200-220 milliseconds. We also induced 2 separate atrial tachycardias: 1. Atrial tachycardia 1., cycle length 280-300 milliseconds. Detailed 3D map of the tachycardia was performed using 3.[address] SF Carto catheter. Early activation was seen in the high posteroseptal area of the right atrium. However prior to mapping being completed, tachycardia was no longer inducible 2. Atrial tachycardia 2, cycle length 270 milliseconds. This was nonsustained and induced only on 1 instance. Atrial tachycardia 1. could not be induced despite isoproterenol infusion 4 mcg /minute, intravenous caffeine. Therefore atrial tachycardias were not targeted for ablation. In preparation for ablation of typical atrial flutter, a high-resolution 3D (3 dimensional) Carto electroanatomical map of the sub-Eustachian isthmus and right atrium was obtained during pacing of the posterolateral coronary sinus. For ablation of typical atrial flutter, Mobi sheath was placed in the right atrium. A #8 Sinhala deflectable quadrapolar electrode catheter (2mm-5mm-2mm spacing) with 3.5 mm irrigated tip electrode and location sensor for the Categorical mapping system was inserted in the long sheath and advanced to the right atrium. Radiofrequency applications were applied between the tricuspid annulus at 0630 oclock as seen in the CYMRAES view and the inferior vena cava. This achieved conduction block across the isthmus. Following ablation of the atrial flutter, programmed atrial stimulation was performed in the baseline state and during infusion of isoproterenol 4 mcg/min. No atrial arrhythmias were inducible post ablation. Post ablation, a high-resolution electroanatomical map of the sub-Eustachian isthmus was obtained during pacing of the posterolateral coronary sinus. This confirmed conduction block across the sub-Eustachian isthmus. Bidirectional block was also confirmed by pacing. The catheters were removed. Long sheath was changed to short 9Fr sheath. Protamine was administered. The patient was transferred to the cardiovascular holding area in stable condition. Vascular access sheaths were removed in the holding area. There were no apparent complications. CONCLUSIONS: 1. Cavotricuspid isthmus dependent counterclockwise atrial flutter. 2. Successful catheter mediated ablation of cavotricuspid isthmus achieving bi -directional conduction block across cavotricuspid isthmus. 3. Right atrial tachycardia arising from high posteroseptal area. 3D mapping done but could not be ablated due to tachycardia becoming non inducible during mapping. 4. No apparent complications. Patient Problems: Problems Problem Status Onset Palpitations Acute Tachycardia Acute
[2018-12-22] MEDS ORDERED: LORazepam 0.5 MG TAB PO SCH (21:00)
[2018-12-23] MEDS: PSYLLIUM METAMUCIL 1 PKT PO SCH ×2 (02:25→09:48)
[2018-12-23 04:22] LABS: PLATELET COUNT 316 10^3/uL (150-400)
[2018-12-23] MEDS ORDERED: LEVOTHYROXINE 100 MCG TAB PO SCH (06:00)
[2018-12-23 07:52] VITALS: BP 111/64
[2018-12-23] MEDS ORDERED: METOPROLOL SUCCINATE XR 50 MG TAB PO SCH (09:00)
[2018-12-23] MEDS ORDERED: MAGNESIUM OXIDE 400 MG TAB PO SCH (09:00)
[2018-12-23] MEDS ORDERED: ASPIRIN 81 MG CHEWABLE TAB PO SCH (09:00)
--- NOTE | 2018-12-23 09:47 | ECHO ---
[email or web address] [address] [address] Main: [phone] Fax: Transthoracic Echocardiogram Name: ABDI PRINGLE MR#: [id number] Study Date: 12/23/2018 Study Time: 08:19 AM Date of : 1955 Age: 63 year(s) Height: 162.6 cm (64 in.) Weight: 63.96 kg (141 lb.) BSA: 1.69 m2 Gender: Female Examination: Echo Indication: Post Ablation Image Quality: Contrast: Requested by: Osbaldo Dill BP: 111 mmHg/64 mmHg Heart Rate: Rhythm: Normal sinus rhythm Indication: Post Ablation Procedure Staff Copper Plate Lithographer: Solomon Soriano RDCS Reading Physician: Aime Tam MD Requesting Provider: Conclusions: Normal study Measurements: Chambers Valvular Assessment AV/MV Valvular Assessment TV/PV Normal Normal Normal Name Value Range Name Value Range Name Value Range Ao [place] (MM): 2.8 cm (2.2 cm-3.7 AV Vmax: 1.30 m/s (1 m/s-1.7 PV Vmax: 0.80 m/s (0.6 m/s-0.9 cm) m/s) m/s) IVSd (2D): 0.7 cm (0.6 cm-1.1 AV maxP mmHg ( - ) PV PGmax: 3 mmHg ( - ) cm) LVOT Vmax: 0.73 m/s (0.7 m/s-1.1 LVDd (2D): 4.0 cm (3.9 cm-5.3 m/s) cm) MV E Vmax: 0.52 m/s ( - ) LVDs (2D): 2.6 cm (2.1 cm-4 MV A Vmax: 0.74 m/s ( - ) cm) MV E/A: 0.70 ( - ) LVPWd (2D): 1.0 cm ( - ) LVEF (2D): 63 (>=54 %) Continued Measurements: Chambers Valvular Assessment AV/MV Name Value Name Value LADs Lon.4 cm MV E' Septal: 0.07 m/s LA Area: 12.9 cm2 MV E/E' Septal: 7.30 LA Volume: 28 ml MV E/E' Lateral: 4.60 LA Volume Index: 16.6 ml/m2 Findings: Left Ventricle: Normal size left ventricle. Normal global systolic LV function. EF is 63 %. No regional wall motion Patient: ABDI PRINGLE Study Date: 12/23/2018 Page 1 of 2 08:19 AM abnormality. Normal diastolic LV function. Right Ventricle: Normal size right ventricle. Normal RV function. Left Atrium: The left atrium is normal in size. Right Atrium: The right atrium is normal in size. Mitral Valve: The mitral valve is normal in appearance and function. There is no significant mitral valve regurgitation. Aortic Valve: The aortic valve is tri-leaflet. The aortic valve is normal in appearance and function. Tricuspid Valve: The tricuspid valve is normal in appearance and function. There is no significant tricuspid valve regurgitation. Pulmonic Valve: The pulmonic valve is normal in appearance and function. Trivial pulmonic valve regurgitation. Aorta: The aorta is normal. Pericardium: No pericardial effusion. (No Signature Object) Patient: ABDI PRINGLE Study Date: 12/23/2018 Page 2 of 2 08:19 AM [id number]
--- NOTE | 2018-12-23 17:20 | GDS ---
[f rep st] DISCHARGE SUMMARY SUPERVISING [employer] BENCH MECHANIC: Osbaldo Dill MD. ADMISSION DIAGNOSIS: Supraventricular tachycardia. DISCHARGE DIAGNOSES: 1. Atrial flutter status post successful ablation. 2. Atrial tachycardia. PROCEDURES PERFORMED: During hospitalization: 1. Electrocardiogram. 2. Echocardiogram. 3. Electrophysiology study. 4. Catheter-mediated ablation for counterclockwise atrial flutter. HOSPITAL COURSE: The patient presented December 22, 2018, for an SVT ablation in the setting of increasingly frequent and symptomatic episodes of supraventricular tachycardia. She underwent successful catheter-mediated ablation of the cavotricuspid isthmus, achieving bidirectional conduction block. She did have an inducible right atrial tachycardia arising from a high posteroseptal area. 3D mapping was done for this atrial tachycardia, but it could not be ablated as it became noninducible during mapping. There were no intraprocedure complications and the patient has done very well post procedure. She is appropriate and stable for discharge home today. PHYSICAL EXAMINATION: GENERAL: She is alert and oriented x4. No apparent distress. VITAL SIGNS: Blood pressure 111/64, heart rate 60, respiratory rate 18, SpO2 93% on room air, temp 36.9 degrees Celsius. RESPIRATORY: Lungs are clear to auscultation without adventitious breath sounds. CARDIAC: Normal S1, S2, no S3, S4, or murmurs. Rhythm is regular. ABDOMEN: Normoactive bowel sounds times all 4 quadrants, no masses or tenderness. Abdomen is soft. SKIN: [place], warm, dry without cyanosis, clubbing, or peripheral edema. EXTREMITIES : Bilateral purse string sutures removed intact without evidence of hematoma, redness, oozing, swelling, or warmth. Pulses are 2+ bilaterally, no edema. LABORATORY STUDIES: Drawn today, WBCs 10.98. CBC otherwise stable compared to preprocedure. BMP is stable compared to preprocedure. Troponin 0.304. Elevated troponin and WBCs are to be expected in postprocedure setting. PROCEDURE: Electrophysiology study and atrial flutter ablation as mentioned above. Preliminary echocardiogram done this morning demonstrates normal left ventricular systolic function without new wall motion abnormalities or pericardial effusion. Electrocardiogram this morning demonstrates normal sinus rhythm without new ST-T wave or TN interval abnormalities. DISCHARGE DISPOSITION: The patient will be discharged home in stable condition. She is under activity restrictions as below. DISCHARGE MEDICATIONS: Please see discharge medication reconciliation sheet for full details. Please note, the patient's dose of metoprolol has been reduced to 25 mg daily. DISCHARGE INSTRUCTIONS: Post atrial flutter ablation instructions reviewed with patient in detail. We discussed activity restrictions including lifting no more than 10 pounds, and avoidance of submerged bathing for 10 days, she will get up and walk around every 45 minutes for 45 days. We also reviewed bleeding precautions, medication compliance, monitoring for signs and symptoms of infection, and monitoring for sustained arrhythmias. At the time of discharge, patient verbalizes understanding of all discharge instructions without questions or concerns. She has a followup visit scheduled in 4 weeks. She will contact our clinic with any new or concerning symptoms prior to her upcoming visit. Time spent on discharge greater than 30 minutes. /[id number]/MODL MTDD
[2018-12-24] MEDS ORDERED: LEVOTHYROXINE 50 MCG TAB PO SCH (06:00)
[2018-12-25] MEDS ORDERED: ESTRADIOL 42.5 GM CRTUBE VG SCH (08:00)
--- NOTE | 2018-12-28 08:57 | CPEKG ---
Test Reason : OPEN Blood Pressure : / mmHG Vent. Rate : 072 BPM Atrial Rate : 070 BPM P-R Int : 168 ms QRS Dur : 119 ms QT Int : 408 ms P-R-T Axes : 068 010 022 degrees QTc Int : 447 ms Sinus rhythm Incomplete right bundle branch block Confirmed by Osbaldo Dill ([id number]) on 12/28/2018 8:57:21 AM Referred By: Osbaldo Dill Confirmed By:Osbaldo Dill
--- NOTE | 2018-12-28 10:02 | CPEKG ---
Test Reason : OPEN Blood Pressure : / mmHG Vent. Rate : 079 BPM Atrial Rate : 080 BPM P-R Int : 183 ms QRS Dur : 116 ms QT Int : 396 ms P-R-T Axes : 064 002 040 degrees QTc Int : 455 ms Sinus rhythm Incomplete right bundle branch block Confirmed by Osbaldo Dill ([id number]) on 12/28/2018 10:02:06 AM Referred By: Osbaldo Dill Confirmed By:Osbaldo Dill
--- NOTE | 2018-12-28 10:03 | CPEKG ---
Test Reason : OPEN Blood Pressure : / mmHG Vent. Rate : 061 BPM Atrial Rate : 060 BPM P-R Int : 158 ms QRS Dur : 128 ms QT Int : 413 ms P-R-T Axes : 030 -04 045 degrees QTc Int : 416 ms Sinus rhythm Right bundle branch block Probable left ventricular hypertrophy Nonspecific T abnormalities, lateral leads Confirmed by Osbaldo Dill ([id number]) on 12/28/2018 10:03:31 AM Referred By: Osbaldo Dill Confirmed By:Osbaldo Dill
== END 2018-12-23 12:06 | disposition home or self-care (01) ==
LOC: FCATH 06:48 → EEVIPCON 06:48 → F2W 12:13
PROVIDERS: ADMIT Internal Medicine Cardiovascular Disease; ATTEND Internal Medicine Cardiovascular Disease
DX: I48.92 Unspecified atrial flutter (principal); I47.1 Supraventricular tachycardia; I45.19 Other right bundle-branch block; I34.0 Nonrheumatic mitral (valve) insufficiency; E78.5 Hyperlipidemia, unspecified; E03.9 Hypothyroidism, unspecified; Z87.440 Personal history of urinary (tract) infections; Z87.891 Personal history of nicotine dependence; Z82.49 Family history of ischemic heart disease and other diseases of the circulatory system
CPT/HCPCS: 93306; 93613; 93621; 93623; 93653; G0378; C1731; C1732; C1766; J0330; J1100; J1644; J2704; J3010

== ENCOUNTER → 2018-12-30 | Outpatient (CLI) | payer OTHER | LOC: FIMAGING 14:47 | PROVIDERS: ATTEND Internal Medicine | DX: I77.3 Arterial fibromuscular dysplasia (principal) ==